=== PATIENT | female | born 1970 | race Caucasian/White ===

== ENCOUNTER 2025-05-11 08:31 | Emergency (ER) | payer MEDICARE ==
[2025-05-11] MEDS: diphenhydrAMINE 50 MG/ML SDV IVPUSH ONE (09:15)
[2025-05-11] MEDS: Lactated Ringers 1,000 ML IV ONE (09:16)
[2025-05-11] MEDS: LORazepam 2 MG/ML SDV IVPUSH ONE ×2 (09:41→11:58)
[2025-05-11] MEDS: LORazepam 2 MG/ML SDV IM ONE (11:58)
== END 2025-05-11 13:04 | disposition home or self-care (01) ==
LOC: JP.ED 08:31
DX: G43.909 Migraine, unspecified, not intractable, without status migrainosus (principal); Z79.890 Hormone replacement therapy; Z79.899 Other long term (current) drug therapy
CPT/HCPCS: 96361; 96374; 96375; 96376; 99283; J1200; J1790; J2060; J7120